=== PATIENT | male | born 1950 | race African-American/Black ===

== ENCOUNTER 2018-08-19 12:37 | Inpatient (IN) | payer OTHER ==
[~2018-08-19] VITALS: Ht 190.5 cm; Wt 97.5 kg
--- NOTE | ~2018-08-19 | HC ---
[facility] [place] [address] CONSULTATION Name: DONNA CORRAL JR Room #: 204-P ADM IN M.R.#: [id number] Admission: 08/19/18 ������������������ Attend Phys: Reyna Sumner Discharge: ������������������ Date of : 48 Report #: [id number] THIS REPORT FOR: //name// CC: FAM unknown Reyna Sumner DATE OF SERVICE: 08/27/2018 CHIEF COMPLAINT: Consultation requested from Dr. Bang for tendon from left ankle tendon debridement. HISTORY OF PRESENT ILLNESS: The patient is a 68-year-old male with a longstanding ulceration to the left anterior ankle with a necrotic and infected extensor tendon. He is on parenteral vancomycin and Zosyn with good tolerance. He has been afebrile with stable vital signs. He has type 2 diabetes mellitus with peripheral arterial disease, status post prior right BKA amputation. He also has a stage III pressure ulcer to the right scapula and flank. He has an unstageable pressure ulceration to the left heel. He denies pain to the left anterior ankle wound. The etiology of the wound is unclear, although may have risen from foot from shoes or compression type stocking. PHYSICAL EXAMINATION: GENERAL: The patient is a poor historian and history of the wound is unclear. EXTREMITIES: There is a large ulceration to the left anterior ankle that is full thickness to the subcutaneous tissue layer. There is no exposed bone or joint. A large extensor tendon present, likely the tibialis anterior. Tibialis anterior tendon is present and necrotic. The tendon is brown, friable, necrotic, and nonfunctional. The patient is nonambulatory and cannot flex or extend his ankle to any degree. The tendon is not adhered to any granulation or subcutaneous tissue. It simply tethered and necrotic with fraying along the portion of the mid substance. The wound bed has red granulation with some pale slough. There is no undermining, no fluctuance or crepitation. The foot is warm with no pallor, cyanosis, or signs of acute vascular embarrassment. LABORATORY DATA: WBC 4.8, RBC 2.55, hemoglobin 8.2, hematocrit 24.9, and platelets 288. BUN 26, creatinine 1.0, and glucose 87. IMPRESSION: Chronic diabetic foot ulceration to left anterior ankle with necrotic and infected tibialis anterior tendon. PLAN: I excised the tibialis anterior at the proximal and distal aspect with a sterile scalpel. Subcutaneous tissue was not violated, as the tendon was bowstringing in the wound and not firmly adhered. The patient felt no pain, and there was scant bleeding with the removal, which was very simple to perform. [address] [address] CONSULTATION Name: DONNA CORRAL Room #: 204-P [facility] IN .R.#: [id number] Admission: 08/19/18 ������������������ Attend Phys: Reyna Sumner Discharge: ������������������ Date of : 48 Report #: [id number] The tendon was then sent for aerobic and anaerobic tissue cultures. The wound was cleansed and dressed with silver foam, ABDs, and Kerlix gauze. ��������������������������������������������� ���������������������������������������� By: ��������������������������������������������� [id number] Hemanth Dolan DPM /nt
[~2018-08-19 12:37] MED LIST: ACETAMINOPHEN325 M1 PO; ACIDOPHILUS LA1 EACH PER TUBE; AFLURIA 2045 MCG/0.4; ATIVAN0.5 MG PO; ATIVAN1 MG PER TUBE; AUGMENTIN 875875 MG PER TUBE; CARVEDILOL3.125 MG PO; COUMADIN 10MG T10 M1 PO; COUMADIN 3 MG TA3 MG PO; DOXYCYCLINE 10100 M1 PER TUBE; GABAPENTIN100 MG PO; GLYCOLAX POWDER17 G1 PO; JANTOVEN6 MG PO; MULTIVITAM9 MG/15 ML PER TUBE; NORVASC10 MG PO; NOVOLOG100 UNIT/1; ONDANSETRON HCL4 M3 PO; ONDANSETRON ODT4 MG PO; ONE DAILY COMP1 EAC1 PO; OXYCODONE HCL 55 MG PO; OXYCODONE HCL5 M1 PO; PNEUMOVAX25 MCG/0.5; PRAVACHOL40 MG PO; REMERON15 MG PO; SEROQUEL 100 M100 MG PER TUBE; SEROQUEL 50 MG50 M1 PO; SEROQUEL200 MG PO; VICODIN 5-5001 EACH PER TUBE; ZOFRAN ODT4 MG PO; [UNRECOGNIZED DRUG - CODE] SUBQ
[2018-08-19 12:39] VITALS: BP 119/53
[2018-08-19 14:15] LABS: ABSOLUTE NEUTROPHILS 4.2 thou/uL (1.4-8.2); BASOPHILS 0.8 % (0.0-2.0); EOSINOPHILS 1.3 % (0.0-3.0); HEMATOCRIT 28.1 % (42.0-52.0); HEMOGLOBIN 9.5 gm/dL (14.0-18.0); LYMPHOCYTES 20.4 % (24.0-44.0); MCH 32.6 pg (26.0-34.0); MCHC 33.7 g/dL (28.0-37.0); MCV 96.9 fL (80.0-100.0); MONOCYTES 4.5 % (1.0-8.0); PLATELET COUNT 411 thou/uL (150-400); RDW 15.1 % (10.5-14.5); WBC 5.7 thou/uL (4.0-11.0)
[2018-08-19 14:23] LABS: CALCIUM 8.8 mg/dL (8.5-10.1); CREATININE 1.1 mg/dL (0.7-1.3); POTASSIUM 4.3 mmol/L (3.5-5.1)
[2018-08-19 16:05] LABS: CHOLESTEROL 112 mg/dL (<200); HDL CHOLESTEROL 23 mg/dL (>40); LDL CHOLESTEROL 79 mg/dL (<100); SERUM ASSESSMENT Clear; TC:HDL 4.9 Ratio (Not establshd); TRIGLYCERIDE 50 mg/dL (<150); VLDL 10 mg/dL (<40)
[2018-08-19 16:33] LABS: TSH 1.666 uIU/mL (0.358-3.740)
[2018-08-19 17:21] VITALS: BP 132/88
--- NOTE | 2018-08-19 18:27 | NUR ---
ATTEMPTED TO CALL REPORT AGAIN AND NURSE IS UNAVAILABLE
[2018-08-19 18:39] VITALS: BP 97/70
[2018-08-19] MEDS ORDERED: ZYLOPRIM300 MG PO (21:06)
[2018-08-19] MEDS ORDERED: VITAMIN D2000 UNIT PO (21:09)
[2018-08-19 21:15] VITALS: BP 118/46
[2018-08-19] MEDS ORDERED: BAYER CHEWABLE81 MG PO (21:21)
[2018-08-19] MEDS ORDERED: ARICEPT 5 MG TAB5 MG PO (21:23)
[2018-08-19] MEDS ORDERED: PRAVACHOL20 MG PO (21:24)
[2018-08-19] MEDS ORDERED: TRAZODONE HCL50 MG PO (21:28)
[2018-08-19] MEDS ORDERED: MELATONIN3 MG PO (21:29)
[2018-08-19] MEDS ORDERED: ZESTRIL40 MG PO (21:30)
--- NOTE | 2018-08-19 21:35 | NUR ---
PT ADMISSION ASSESSMENT COMPLETED.PT IS DISORIENTED SECONDARY TO DEMENTIA. HAS TEARFUL MOMENTS. TAKES MEDS IN APPLESAUCE, PREFERABLY CRUSHED. WOUND PICTURES YET TO BE TAKEN. IVF AND IV ABTS STARTED.FALL PREC IN PLACE.
[2018-08-19] MEDS ORDERED: PEPCID20 MG PO (21:36)
--- NOTE | 2018-08-20 02:59 | NUR ---
PT HAS WOUNDS TO L HEEL AND LEFT DORSAL FOOT. PICTURES TAKEN. PT HAS SEVERAL OPEN AREAS TO BACK. SOME LOOK LIKE OPEN BLISTERS. THERE IS LOTS OF SCARS IN DIFFERENT HEALING STAGES. PICTURES TAKES.
[2018-08-20 03:35] VITALS: BP 105/64
[2018-08-20 07:27] VITALS: BP 132/93
[2018-08-20 07:28] VITALS: BP 132/93
--- NOTE | 2018-08-20 19:27 | NUR ---
ASSUMED CARE OF PATIENT AT 0715, PATIENT ALERT TO SELF WITH CONFUSION. PATIENT HAS LEFT FOREARM IV IN PLACE WITH NS AT 75CC/HR. PATIENT APPETITE NOT GOOD, PATIENT IS A FEEDER, CRUSH MEDS WITH APPLESAUCE. BLOOD SUGAR MONITORING ORDERED, NO INSULIN GIVEN THIS SHIFT. INCONTINENT OF B/B. WOUND CARE DOEN TO LEFT FOOT. PATIENT ON BEDREST. NO FAMILY HERE TODAY. WILL CONTINUE TO MONITOR.
[2018-08-20 19:29] VITALS: BP 124/49
--- NOTE | 2018-08-21 02:25 | NUR ---
ASSUMED CARE AROUND 1900. LLE DRESSING CDI. DROWSY AT BASELINE. HELD REMERON. IVF AND IV ATB. MAMADOU PUMP ORDERED. NO S/S ACUTE DISTRESS NOTED OR REPORTED AT THIS TIME. WILL CONT TO MONITOR FOR ANY CHANGES IN CONDITION.
[2018-08-21 04:45] VITALS: BP 147/65
[2018-08-21 07:30] VITALS: BP 137/43
[2018-08-21 09:30] VITALS: BP 115/56
[2018-08-21 10:35] LABS: INR 1.1; PROTIME 11.4 Seconds (9.3-11.4)
[2018-08-21 11:30] VITALS: BP 127/75
--- NOTE | 2018-08-21 13:40 | NUR ---
ADMITTED PATIEN TO UNIT FROM FOURTH FLOOR. HE IS QUITE CONFUSED BUT PLEASANT. HE DOES NOT SEEM TO BE IN PAIN. HE IS NOT ABLE TO STATE HIS NAME OR PLACE. HE IS QUITE INCOHERENT WHEN HE SPEAKS. NEEDS TOTAL CARE. WILL CONT WITH PLAN OF CARE.
[2018-08-21 16:05] VITALS: BP 139/57
[2018-08-21 20:09] VITALS: BP 149/71
[2018-08-22 04:48] VITALS: BP 132/59
--- NOTE | 2018-08-22 07:26 | NUR ---
ASSESSMENTS CHARTED. CONFUSED. IN HEART BLOCK. KOLBY IN THE 30'S DURING THE NIGHT. DR. CLEMENTE. JORGE ALBERTO WAS DC'D YESTERDAY TO SEE IF IT WAS THE CAUSE OF BRADYCARDIA. RECEIVING ANTIBIOTICS TREATMENTS. INCONTINENT OF B&B. Q2 TURNS DURING NIGHT DONE BY ACUTE CARE PHYSICIAN. NONHEALING WOUND ON LEFT ANKLE. WOUND CARE TO SEE HIM.
[2018-08-22 07:45] VITALS: BP 137/45
--- NOTE | 2018-08-22 08:35 | NUR ---
Assumed pt care at 7am.Pt in bed resting alert and oriented to self.Assessment completed.vss but heart rate was in the upper 30's to 40's and sometimes junctional on the environmental monitoring specialist but asymptomatic.Dr Taveras and Katie notifed.Coreg on hold.Eric headley np notified the family but not available.This rn was concerned about pt code status and possible pacemaker insertion.Blood sugar was 82 this am.Power Plant Operator to feed pt.Will call family again to determine code status and treatment option.Will continue to monitor.
[2018-08-22 11:55] VITALS: BP 133/62
[2018-08-22 15:50] VITALS: BP 114/83
[2018-08-22 21:18] VITALS: BP 171/54
[2018-08-23 05:31] VITALS: BP 139/60
--- NOTE | 2018-08-23 06:02 | NUR ---
ASSUME CARE 1900. PT/VITALS STABLE. PAIN NOTED WITH MOVING LEFT FOOT. CELLULITIES NOTED ON LEFT FOOT. A/O TO PERSON ONLY. NOTED TALKING TO SELF AND INCOHERENTLY. COMPLETE HEART BLOCK NOTED ON MONITOR. PT ASSYMPTOMATIC. PLAN IS TO DO ECHO AND POSSIBLE PACEMAKER WHEN INFECTION CLEARS. ASSESSMENT CHARTED. WILL CONTINUE TO MONITOR AND FOLLOW WITH POC
[2018-08-23 06:07] LABS: ALBUMIN 2.1 g/dL (3.4-5.0); CALCIUM 7.9 mg/dL (8.5-10.1); POTASSIUM 4.5 mmol/L (3.5-5.1); TOTAL BILIRUBIN 0.2 mg/dL (<0.1-1.0); TOTAL PROTEIN 5.9 g/dL (6.4-8.2)
[2018-08-23 06:30] LABS: HEMATOCRIT 26.8 % (42.0-52.0); HEMOGLOBIN 8.9 gm/dL (14.0-18.0); MCH 32.5 pg (26.0-34.0); MCHC 33.3 g/dL (28.0-37.0); MCV 97.4 fL (80.0-100.0); RBC 2.75 mil/uL (4.50-6.00); RDW 15.1 % (10.5-14.5); WBC 4.8 thou/uL (4.0-11.0)
[2018-08-23 07:45] VITALS: BP 126/46
[2018-08-23 11:30] VITALS: BP 132/47
--- NOTE | 2018-08-23 13:30 | EKG ---
[address] [place] [address] ELECTROCARDIOGRAM REPORT Name: DONNA CORRAL Room #: 204-P ADM IN M.R.#: [id number] ������������������ Admission: 08/19/18 ������������������ Attend Phys: Reyna Sumner Discharge: ������������������ Date of : 48 Report #: [id number] ����������������������������������������������������������������� [id number] THIS REPORT FOR: //name// [facility] Test Date: 2018-08-21 Test Time: 08:11:00 Pat Name: DONNA CORRAL Department: Room: 204 Gender: M Mortgage Operations Manager: JENNIFER : 1950 Requested By: William Gonzalez Order Number: [id number] MD: Derw Sweeney Measurements Intervals [place] Rate: 41 P: RI: QRS: -87 QRSD: 139 T: 80 QT: 539 QTc: 446 Interpretive Statements Junctional rhythm Right bundle branch block Left anterior fascicular block Compared to ECG 03/12/2011 14:13:04 Junctional rhythm now present Electronically Signed On 08-23-2018 13:29:53 CDT by Drew Sweeney [email or web address] ��������������������������������������������� <ELECTRONICALLY SIGNED> ���������������������������������������� By: Drew Sweeney MD, [facility] ��������������������������������������������� 08/23/18 1329 0811 0 Drew Sweeney MD, [facility] /EPI
--- NOTE | 2018-08-23 13:42 | EKG ---
[place] [address] [facility] [place] [address] ELECTROCARDIOGRAM REPORT Name: DONNA CORRAL JR Room #: 204-P ADM IN M.R.#: [id number] ������������������ Admission: 08/19/18 ������������������ Attend Phys: Reyna Sumner Discharge: ������������������ Date of : 46 Report #: [id number] ����������������������������������������������������������������� [id number] THIS REPORT FOR: //name// [facility] Test Date: 2018-08-22 Test Time: 08:24:33 Pat Name: DONNA CORRAL Department: Room: 204 P Gender: M Manager Of Clinical: ALECIA : 1950 Requested By: Tammie Sands Order Number: [id number] MD: Drew Sweeney Measurements Intervals [place] Rate: 40 P: [place]: QRS: -76 QRSD: 130 T: 33 QT: 544 QTc: 444 Interpretive Statements Sinus bradycardia with first-degree AV block IVCD, consider atypical RBBB Consider anterior infarct Compared to ECG 03/12/2011 14:13:04 Sinus bradycardia has replaced possible junctional bradycardia Electronically Signed On 08-23-2018 13:42:41 CDT by Drew Sweeney [email or web address] ��������������������������������������������� <ELECTRONICALLY SIGNED> ���������������������������������������� By: Drew Sweeney MD, [facility] ��������������������������������������������� 08/23/18 1342 0824 0824 Drew Sweeney MD, [facility] /EPI
--- NOTE | 2018-08-23 16:04 | NUR ---
AAOX1. SPEECH INCOHERENT AND MUMBLY. INCONTINENT OF LARGE AMOUTS OF URINE. IV D/C'D FROM RIGHT ARM DUE TO INFILTATION. ATE APPROX 50% OF MEALS - DOES NOT FEED SELF. TURNED EVERY 2 HOURS. BACK WITH SMALL WOUNDS COVERED WITH MEPILEX. BARRIER CREAM APPLIED TO BUTTOCKS. REMAINS ON ROOM AIR. LEFT FOOT WOUNDS REDRESSED WITH IODOFORM GAUZEA AND COVERED WITH ABD AND HELD INPLACE WITH ROLLER GAUZE. DENIES PAIN. HEART RHYTHM REMAINS KOLBY IN COMPLETE BLOCK.
[2018-08-23 16:05] VITALS: BP 136/59
[2018-08-23 20:15] VITALS: BP 121/51
[2018-08-24 03:23] LABS: HEMATOCRIT 25.9 % (42.0-52.0); HEMOGLOBIN 8.5 gm/dL (14.0-18.0); MCH 32.2 pg (26.0-34.0); MCHC 32.9 g/dL (28.0-37.0); RBC 2.65 mil/uL (4.50-6.00); RDW 15.3 % (10.5-14.5); WBC 4.4 thou/uL (4.0-11.0)
[2018-08-24 03:44] LABS: % SATURATION 30 % (20-39); IRON 30 ug/dL (65-175); TIBC 99 ug/dL (250-450)
[2018-08-24 04:15] VITALS: BP 145/110
--- NOTE | 2018-08-24 05:56 | NUR ---
ASSUME CARE 190. PT/VITALS STABLE. A/O TO PERSON ONLY. HX OF DEMENTIA. PT STILL SPEAKING TO SELF BUT MORE APPROPRIATE WITH RESPONSE TO QUESTIONS COMPARED TO PREVIOUS DAYS. PT SEEMS TO BE COMING AROUND MORE. POOR ACTIVITY TOLERANCE. WILL BENEFIT FROM PT/OT EVAL/TX. PT HAS MULTILPLE WOUND ON BACK AT MULTIPLE STAGES OF HEALING, BUT CANNOT COMMUNICATE WHAT EXACTLY HAPPENED TO HIM AND WHY HE HAS ALL THESE WOUNDS AT DIFFERENT HEALING STAGES. ASSESSMENT CHARTED. PROGRESSING WITH POC. PLAN IS TO CONTINUE TO TREAT WITH ABX AND MAKE A DECISION ON LEFT FOOT. LABS ARE APPROPRIATE. ADEQUATE REST NOTED. COMPLETE HEART BLOCK NOTED ON MONITOR WITH HR IN 30s-50s. PT ASSYMPTOMATIC. WILL CONTINUE TO MONITOR AND FOLLOW WIHT POC
[2018-08-24 08:43] VITALS: BP 137/62
[2018-08-24 12:08] VITALS: BP 140/50
--- NOTE | 2018-08-24 15:15 | NUR ---
WOUND CONSULT; ROUNDING WITH DR LI BOLAND AND CRISTIAN PORTER USED CAR LOT. 3 WOUNDS TO THE LEFT FOOT PRESSURE IS LIKELY ETIOLOGY. THE DORSAL SURFACE OF THE LEFT FOOT HAS TENDON EXPOSED. THE LEFT HEEL AND LEFT FOORT WOUNDS ARE UNSTAGEABLE. THIS FOOT SEEMS TO BE INSENSATE. RECOMMENDATIONS; XEROFORM ABD,KERLIX DAILY/PRN DISCUSSED WITH SUSANNE
[2018-08-24 17:15] VITALS: BP 149/99
--- NOTE | 2018-08-24 18:40 | NUR ---
US OF BLE DONE, WOUND RE-WRAPPED, PT'S SPOUSE CAME UP TO VISIT AND HELPED FEED HIM FOR DINNER. STATES BACK WOUNDS, IN VARYING DEGREES OF HEALING/SCARRING, ARE OLD BED SORES
[2018-08-24 20:05] VITALS: BP 129/43
[2018-08-25 04:57] VITALS: BP 147/60
--- NOTE | 2018-08-25 06:12 | NUR ---
[facility] 1900. PT/VITALS STABLE. POORLY COMMUNICATES NEEDS BUT MUCH IMPROVEMENT NOTED FROM HOW PT RESPONDS TO COMMANDS. PT IS PROVIDES MORE APPROPRIATE ANSWERS TO QUESTIONS THAN BEFORE. ADEQUATE REST NOTED THROUGH THE NIGHT. NEEDS ENCOURGAING WITH FOOD and water intake. ASSESSMETN AAS CHARTED. PROGRESSING WITH POC. PLAN IS TO CONTINUE TREATING PT WITH ABX TO CLEAR INFECTION AND THEN POSSIBLE TALKS WITH CARDIO ON PACEMAKER PLACEMENT. ALSO POSSIBLE TALKS ON POC FOR THE REMAINING FOOT. WILL CONTINUE TO FOLLOW WITH POC
[2018-08-25 07:00] VITALS: BP 157/55
--- NOTE | 2018-08-25 08:14 | NUR ---
Patient with some confusion. Sp with dtr and patient resides at home with family. All needs on one level. Dtr reports patient has hospital bed, sukhi lift, a paid aide to assist with housekeeping. Patient has visiting phys. Dtr reports they do not have HH care. Dtr reports interest in therapy for patient at home. Agreeable to HH care at home. If patient to dc today will discuss HH with .
--- NOTE | 2018-08-25 08:47 | HC ---
[facility] [place] [address] CONSULTATION Name: ELLISDONNAPATTI Lee JR Room #: 204-P [facility] IN M.R.#: [id number] Admission: 08/19/18 ������������������ Attend Phys: Reyna Sumner Discharge: ������������������ Date of : 48 Report #: [id number] THIS REPORT FOR: //name// CC: FAM unknown Reyna Sumner DATE OF SERVICE: 08/24/2018 CHIEF COMPLAINT: Ulcerations to the back and left lower extremity. HISTORY OF PRESENT ILLNESS: This is a 68-year-old male patient with a history of type 2 diabetes mellitus and prior right below knee amputation, was admitted through the Emergency Department due to persistent or worsening wounds of the lower extremity. He is unable to provide any information about himself and is a little bit combative. Per the medical records, he has been followed at [facility]. Details of those visits are unavailable at this time. According to the records, below knee amputation was recommended on the left side and reportedly family has refused. The patient is not able to have a rational conversation about his care presently. PAST MEDICAL HISTORY: Obtained from his records include diabetes mellitus, prior right below knee amputation, hypertension, lymphedema, and anemia. ALLERGIES: SULFA. MEDICATIONS: Include ondansetron, Norvasc, Coreg, gabapentin, Ativan, Remeron, Pravachol, GlycoLax powder, Seroquel, NovoLog, Ativan, OxyIR, and Coumadin. SOCIAL HISTORY: The patient has a history of alcohol use. No history of smoking. REVIEW OF SYSTEMS: Really not able to be obtained. The patient does converse, but does not really answer questions pertaining to his current condition on health care. PHYSICAL EXAMINATION: VITAL SIGNS: At this time include temperature 36.7, pulse 40, respiratory rate of 18, and blood pressure 140/50. GENERAL APPEARANCE: This is a chronically ill-appearing male patient who appears to be in no distress. HEENT: Head normocephalic. Nose and throat clear. NECK: Supple. LUNGS: Clear. ABDOMEN: Soft, bowel sounds present. EXTREMITIES: Lower extremities demonstrates a previously healed right below-knee amputation site. Examination of the left lower extremity [facility] [address] [place] [address] CONSULTATION Name: DONNA CORRAL Room #: 204-P [facility] IN ..#: [id number] Admission: 08/19/18 ������������������ Attend Phys: Reyna Sumner Discharge: ������������������ Date of : 48 Report #: [id number] demonstrates ulceration to the posterior left heel. It is covered with a black eschar, is slightly loose. There is no obvious odor. Small amount of drainage is noted. Anteriorly, the patient has exposed flexor tendon appearing to be tibialis anterior tendon, it is desiccated and fairly widely exposed, surrounding that there is some granulation tissue. I am not able to palpate distal pulses. The patient also noted to have stage III pressure ulcerations to his right scapular and right flank area. These are relatively small clean, healthy, granulating with no exposure of deep structures. LABORATORY DATA: Includes white blood cell count 4.4, the hemoglobin 8.5, hematocrit 25.9, and platelet count 308,000. Sodium 145, potassium 4.5, chloride 110, CO2 25, BUN 12, creatinine 1.0, glucose 81, total bilirubin 0.2, AST is 18, ALT is 16, total protein 5.9, and albumin 2.1. CLINICAL IMPRESSION: 1. Stage III pressure ulceration of the right scapular region and stage II pressure ulceration to the right flank region. 2. Unstageable pressure ulcer to the left heel. 3. Stage IV pressure ulceration of the left anterior ankle. I suspect that this is pressure where there is certainly a component of diabetes and probable vascular disease have contributed to this. In this location, I suspect at some point, he was wearing a stocking or some footwear that was tight across the anterior ankle causing an erosion. 4. Diabetes mellitus. 5. Severe protein-calorie malnutrition. RECOMMENDATIONS: At this point in time, I doubt the left leg can be salvaged. He would likely best be served with amputation. We will check arterial studies. There is no family available to discuss care options at this time. The patient does not appear to be able to converse coherently regarding recommendations. We will recommend topical Xeroform gauze for now until the anterior ankle protective dressing on the heel. He will need a PRAFO boot on the left heel. He will need a low air loss mattress, q.2 hour turning and repositioning, aggressive nutritional support, bordered foam to the scapular and flank ulcerations. I appreciate being asked to see him in consultation. ��������������������������������������������� <ELECTRONICALLY SIGNED> ���������������������������������������� By: Shon Bang MD ��������������������������������������������� 08/25/18 0847 1528 2253 Shno Bang MD /nt
[2018-08-25 10:49] VITALS: BP 157/55
[2018-08-25 12:00] VITALS: BP 112/45
--- NOTE | 2018-08-25 15:55 | 2DMMODE ---
[facility] [place] [address] 2 D/M-MODE ECHOCARDIOGRAM Name: DONNA CORRAL JR Room #: 204-P [facility] IN .R.#: [id number] ������������� Admission: 08/19/18 ������������� Attend Phys: Reyna Mujica Discharge: ��� ������������� ��� Date of : 46 Date of Service: 08/21/18 1438 �� Report #: [id number] �������� �������������������������������������������� THIS REPORT FOR: //name// Accession No. : [id number] Patient Name / ID : ELLIS Lee JR / [id number] Exam Date : 08/21/2018 13:47:14 ( Approved ) Study Comment : Sex / Age : M / 68Y Creator : Joe Vegas Dictator : Peer Specialist : Water Softener Servicer : Wero Gutierrez MD Approver2 : Report Date : 08/21/2018 14:38:34 My Comment : APPROVED REPORT Study performed: 08/21/2018 13:47:14 EXAM: Comprehensive 2D, Doppler, and color-flow Echocardiogram Patient Location: Bedside Room #: 204 Status: routine BSA: 2.15 HR: 52 bpm BP: 127/75 mmHg Rhythm: Bradycardia Other Information Study Quality: Adequate Indications Arrhythmia Diabetes Hypertension/HDD Volumes Left Atrial Volume (Systole) Single Plane 4CH: 74.16 mL Single Plane 2CH: 47.34 mL LA ESV Index: 31.00 mL/m2 Aortic Valve AoV Peak Maninder.: 1.29 m/s [facility] [place] [address] 2 D/M-MODE ECHOCARDIOGRAM Name: DONNA CORRAL Room #: 204-P [facility] IN M.R.#: [id number] ������������� Admission: 08/19/18 ������������� Attend Phys: Reyna Mujica Discharge: ��� ������������� ��� Date of : 46 Date of Service: 08/21/18 1438 �� Report #: [id number] �������� �������������������������������������������� AO Peak Gr.: 6.68 mmHg LVOT Max P.56 mmHg LVOT Max V: 0.94 m/s Mitral Valve E/A Ratio: 2.0 MV Decel. Time: 175.45 ms MV E Max Maninder.: 1.31 m/s MV A Maninder.: 0.64 m/s MV PHT: 50.88 ms IVRT: 69.20 ms Pulmonary Valve PV Peak Maninder.: 1.22 m/s PV Peak Gr.: 5.99 mmHg Tricuspid Valve TR Peak Maninder.: 2.29 m/s TR Peak Gr.: 20.94 mmHg PA Pressure: 21.00 mmHg Left Ventricle The left ventricle is normal size. There is normal LV segmental wall motion. There is normal left ventricular wall thickness. The left ventricular systolic function is normal. The left ventricular ejection fraction is within the normal range. LVEF is 55-60%. This study is not technically sufficient to allow evaluation of the LV diastolic function. Right Ventricle The right ventricle is normal size. The right ventricular systolic function is normal. Atria The left atrium size is normal. The right atrium size is normal. Aortic Valve The aortic valve is normal in structure. No aortic regurgitation is present. There is no aortic valvular stenosis. Mitral Valve The mitral valve is normal in structure. Trace mitral regurgitation. No evidence of mitral valve stenosis. Tricuspid Valve The tricuspid valve is normal in structure. There is trace tricuspid regurgitation. Estimated PAP 21 plus the right atrial pressure. There is no pulmonary hypertension. [facility] [address] [place] [address] 2 D/M-MODE ECHOCARDIOGRAM Name: DONNA CORRAL Room #: 204-P [facility] IN [facility]#: [id number] ������������� Admission: 08/19/18 ������������� Attend Phys: Reyna Mujica Discharge: ��� ������������� ��� Date of : 46 Date of Service: 08/21/18 1438 �� Report #: [id number] �������� �������������������������������������������� Pulmonic Valve The pulmonary valve is normal in structure. There is no pulmonic valvular regurgitation. Great Vessels The aortic root is normal in size. IVC is not well visualized. Pericardium There is no pericardial effusion. <Conclusion> The left ventricle is normal size. LVEF is 55-60%. The aortic valve is normal in structure. The mitral valve is normal in structure. Trace mitral regurgitation. The tricuspid valve is normal in structure. There is trace tricuspid regurgitation. Estimated PAP 21 plus the right atrial pressure. There is no pulmonary hypertension. The pulmonary valve is normal in structure. The aortic root is normal in size. There is no pericardial effusion. ��������������������������������������������� ���������������������������������������� By: ��������������������������������������������� 1438 1552 Wero Gutierrez MD /HILARIA
[2018-08-25 16:00] VITALS: BP 122/72
--- NOTE | 2018-08-25 16:18 | NUR ---
Dr Burgos speaking with family regarding option. does not want amputation. Updated RN. Plan home with HH once stable.
--- NOTE | 2018-08-25 17:51 | NUR ---
ASSUMED CARE OF PT AT SHIFT CHANGE. ASSESSMENTS CHARTED. MEDS GIVEN PER APR. PT ALERT AND ORIENTED TO PERSON ONLY, PT CONFUSED. VSS, DENIES PAIN, O2 SATS WNL ON ROOM AIR, NO S/SX OF CARD OR RESP DISTRESS NOTED. PT NON AMBULATORY, Q2 TURNS ENFORCED. APPETITE ADEQUATE- ASSISTED AND ENCOURAGED TO EAT MEALS. WOUND CARE PERFOMED PER WOUND CARE ORDERS. PT DENIES CONCERNS AT THIS TIME. PT FAMILY REQUESTED TO SPEAK WITH WOUND PHYSICIAN, PHSICIAN NOTIFIED AND TELEPHONE NUMBER OF FAMILY GIVEN TO PHYSICAN. PT DENIES NEEDS AT THIS TIME. WILL CONT TO MONITOR AND FOLLOW POC.
[2018-08-25 20:12] VITALS: BP 133/104
[2018-08-26] VITALS (8 sets, daily range): BP systolic 133–145; BP diastolic 32–76
--- NOTE | 2018-08-26 03:58 | NUR ---
PT REMAINS ON RA. COMPLETE HEART BLOCK ON MONITOR. PT TOLERATING FREQUENT TURNS. OCCULT STOOL SAMPLE OBTAINED THIS SHIFT.
--- NOTE | 2018-08-26 12:47 | NUR ---
patient on service with [facility] home [facility] care rec only nursing.
--- NOTE | 2018-08-26 15:04 | NUR ---
michelle sent updates to [facility]
--- NOTE | 2018-08-26 18:27 | NUR ---
ASSUMED CARE OF PT AT SHIFT CHANGE. ASSESSMENTS CHARTED. MEDS GIVEN PER APR. PT DROWSY THIS SHIFT, ALERT AT TIMES, ORIENTED TO SELF ONLY, CONFUSED. BP LOW THROUGHOUT SHIFT, AT APPROX 1700 PT BP LOW, PHYSICIAN NOTIFIED, ORDERS RECEIVED. BP INCREASED, PT BECAME MORE AWAKE WELL. SPOUSE AT BEDSIDE AND HELPED PT EAT DINNER, APPETITE VERY WELL THIS SHIFT. PT INCONT OF BOWEL AND BLADDER, WOUND DRESSING CHANGED PER WOUND ORDERS, PICTURES TAKEN. WOUND DR CONSULTED MATERIAL YARD CLERK THIS SHIFT. PT DENIES CONCERNS AT THIS TIME. CONTINUING TO MONITOR.
--- NOTE | 2018-08-27 00:50 | NUR ---
ASSUMED CARE OF PATIENT AT 1900. VSS, AFEBRILE TURNED Q2. INCONTINENT OF URINE AND BOWEL. ALERT ONLY TO SELF, BELIEVES IT IS 1996 AND HE IS 25. ORIENTED FREQUENTLY. TAKES MEDS WITH APPLESAUCE, NO DIFFICULTY. NO S/S OF DISTRESS, HEART RATE REMAINS EXTREMELY KLOBY. WORKING TOWARDS POC GOALS.
[2018-08-27 03:22] VITALS: BP 140/51
[2018-08-27 04:15] LABS: CALCIUM 8.5 mg/dL (8.5-10.1); POTASSIUM 4.3 mmol/L (3.5-5.1)
[2018-08-27 04:35] LABS: HEMATOCRIT 24.9 % (42.0-52.0); HEMOGLOBIN 8.2 gm/dL (14.0-18.0); MCH 32.2 pg (26.0-34.0); MCV 97.5 fL (80.0-100.0); RBC 2.55 mil/uL (4.50-6.00); RDW 15.9 % (10.5-14.5); WBC 4.8 thou/uL (4.0-11.0)
[2018-08-27 07:05] VITALS: BP 149/44
[2018-08-27 11:27] VITALS: BP 150/88
[2018-08-27 15:09] VITALS: BP 159/40
--- NOTE | 2018-08-27 17:34 | NUR ---
ASSUMED CARE OF PT AT SHIFT CHANGE. ASSESSMENTS CHARTED. MEDS GIVEN PER APR. PT ORIENTED TO SELF ONLY, CONFUSED. VSS, DENIES PAIN. O2 SATS WNL ON ROOM AIR. PT INCONTINENT OF BOWEL AND BLADDER. Q2 TURNS ENFORCED. WOUND CARE PHYSICIAN CONSULTED PODIATRY FOR TENDON SACRAFIC YESTERDAY AND SPOKE WITH FAMILY REGARDING TENDON SACRAFIC. CRIME INVESTIGATOR SPECIAL AGENT VISITED WITH PT TODAY, PROCEDURE FOR TENDON REMOVAL TODAY, CONSENT SIGNED BY PHYSICIAN. FOOT CURRENTLY WRAPPED IN ORIGINAL DRESSING BY CRIME INVESTIGATOR SPECIAL AGENT. PT CURRENTLY BEING FED DINNER, APPETITE ADEQUATE THROUGHOUT DAY. DENIES CONCERNS AT THIS TIME. WILL CONT TO MONITOR.
[2018-08-27 19:58] VITALS: BP 152/41
--- NOTE | 2018-08-28 04:54 | NUR ---
ASSUMED CARE AT 1900. PT ALERT AND ORIENTED. NO DISTRESS. PT DENIES PAIN. CONFUSED. WOUND DRESSINGS INTACT. VITALS STABLE. WILL CONTINUE WITH ABX AND FOLLOW POC.
[2018-08-28 06:07] VITALS: BP 153/60
[2018-08-28 08:05] VITALS: BP 148/110
[2018-08-28 11:28] VITALS: BP 127/39
--- NOTE | 2018-08-28 14:18 | NUR ---
Licensing Manager visited with the pt and his spouse Tammy at bedside. DC plan at this time is to return home with hh;however should the pt need iv atb at dc they would be interested in a SNF stay vs home infusion. The pt has been to [facility] in the past and would consider that again. Will check on bed status and physician imput regarding plan for the IV ATBs.
--- NOTE | 2018-08-28 16:39 | NUR ---
FAXED REFERRAL FOR [facility] SPOKE WITH MAURILIO JACKSON AND SHE WILL REVIEW. DCP TO FOLLOW.
[2018-08-28 16:42] VITALS: BP 144/89
[2018-08-28 16:43] VITALS: BP 144/89
--- NOTE | 2018-08-28 18:48 | NUR ---
PT CARE ASSUMED APPROX 0700. PT ALERT BUT DISORIENTED X3. ORIENTED ONLY TO SELF. THIS IS BASELINE. DENIES PAIN. NO APPARENT DISTRESS NOTED. VSS. BS WNL. TURNING Q2 HRS AND PRN. INCONT OF BOWEL AND BLADDER. AT BEDSIDE. PT COMBATIVE AT TIMES. HELPS PT TO BECOME MORE COOPERATIVE. EDUCATED ON POLICY FOR RESTRAINTS IF PT REMAINS COMBATIVE DISPLAYING POTENTIAL HARM TO SELF OR OTHER. RESTRAINTS NOT NECESSARY AT THIS TIME. IVF AND IV ABT REMAINS TO POC. PT TOLERATING. NO DISTRESS NOTED.
[2018-08-28 19:54] VITALS: BP 134/36
--- NOTE | 2018-08-29 04:36 | NUR ---
1900. PT CONFUSED AND COMBATIVE WITH CARE. DENIES PAIN. NO SIGNS OF DISTRESS OVERNIGHT. VITALS STABLE BUT PULESE REMAIN KOLBY WITH A HEART BLOCK ON THE BOOK CLEANER. INCONTINENT OF BOWEL AND BLADDER. NO FURTHER CONCERNS. WILL CONTINUE TO FOLLOW POC.
[2018-08-29 05:13] VITALS: BP 146/95
[2018-08-29 07:16] LABS: HEMATOCRIT 24.7 % (42.0-52.0); HEMOGLOBIN 8.2 gm/dL (14.0-18.0); MCV 96.9 fL (80.0-100.0); RBC 2.55 mil/uL (4.50-6.00); RDW 16.1 % (10.5-14.5); WBC 5.3 thou/uL (4.0-11.0)
[2018-08-29 07:27] LABS: CALCIUM 7.9 mg/dL (8.5-10.1); CREATININE 0.9 mg/dL (0.7-1.3); POTASSIUM 3.9 mmol/L (3.5-5.1)
[2018-08-29 08:03] VITALS: BP 131/39
[2018-08-29 11:30] VITALS: BP 123/41
[2018-08-29 15:45] VITALS: BP 133/34
--- NOTE | 2018-08-29 17:33 | NUR ---
PATIENT CARE ASSUMED, ASSESSMENT CHARTED, PATIENT CONFUSED AND ORIENTED TO SELF, VSS, Q 2 HR TURNS, DRESSING CHANGED ON LEFT FOOT AND RIGHT UPPER BACK. NS INFUSING AT 1OOML. WILL CONTINUE TO MONITOR
[2018-08-29 20:18] VITALS: BP 151/60
--- NOTE | 2018-08-30 02:14 | NUR ---
PT REMAIN ALERT TO SELF. DENIES PAIN. CONFUSED. VITAL STABLE. REMAINS SB IN 40S AND 30S BUT ASYMPTOMATIC. COMBATIVE SOMEWHAT WITH CARE THIS NIGHT. Q2 TURNS, AIR LOSS MATTRESS FUNCTIONAL. LEG BOOT TO THE LEFT FOOT. ASSESSMENTS DOCUMENTED. WILL CONTINUE TO FOLLOW POC
[2018-08-30 04:05] VITALS: BP 152/83
--- NOTE | 2018-08-30 04:52 | HC ---
[facility] [place] [address] CONSULTATION Name: DONNA CORRAL JR Room #: 204-P ADM IN M.R.#: [id number] Admission: 08/19/18 ������������������ Attend Phys: Reyna Sumner Discharge: ������������������ Date of : 46 Report #: [id number] THIS REPORT FOR: //name// CC: FAM unknown Reyna Sumner DATE OF SERVICE: 08/29/2018 INFECTIOUS DISEASE CONSULTATION ATTENDING PHYSICIAN: Dr. Sumner. REASON FOR EVALUATION: Recommendations for antibiotic therapy, the patient with a deep infection. HISTORY OF PRESENT ILLNESS: The patient is a 68-year-old gentleman with diabetes mellitus complicated by some vasculopathy, also has fairly advanced dementia, apparently has an ongoing issue with multi focal ulcerations including the posterior aspect of his left heel and developed some drainage, increasing inflammation. Underwent imaging showed no evidence of periosteal reaction, erosive changes. Arterial Doppler showed widespread atherosclerosis, suspect popliteal artery [id number] stenosis. Did undergo debridement of the left ankle tendon with partial resection. Operative culture result is pending. Gram stain did show mixed type picture including gram-positive cocci, gram-positive rods, and empirically started on vancomycin as well as piperacillin and tazobactam. Additional history was not reliably obtained. His family members is not overtly distressed. It is not clear if he has had any fevers or systemic illness. ALLERGIES: Listed to SULFA. CURRENT MEDICATIONS: Include vancomycin, atorvastatin, quetiapine, mirtazapine, Zosyn, p.r.n. analgesics, antiemetics, and zolpidem. PAST MEDICAL HISTORY: Includes diabetes mellitus type 2 complicated by vasculopathy, remote multisite ulcers, history of previous below-knee amputation on the right, lymphedema, chronic anemia, hypertension, and depression. SOCIAL HISTORY: Nonsmoker, no ethanol, no illicit drug use. FAMILY HISTORY: Noncontributory. REVIEW OF SYSTEMS: Not reliably obtained. PHYSICAL EXAMINATION: GENERAL: He is pleasant, alert, and cooperative. He is clearly moderately to [facility] [employer] [place] [address] CONSULTATION Name: DONNA CORRAL Room #: [address] [place] [address] IN ..#: [id number] Admission: 08/19/18 ������������������ Attend Phys: Reyna Sumner Discharge: ������������������ Date of : 46 Report #: [id number] markedly encephalopathic consistent with diagnosis of progressive dementia, appears to be mildly undernourished. He is not overtly distressed. VITAL SIGNS: Temperature 98.3, pulse 40, respirations 18, blood pressure 133/34, and saturation 100%. SKIN: Warm, dry, no rashes. HEENT: Normocephalic. Extraocular muscles intact. NECK: Supple. LUNGS: Diminished breath sounds and had crackles. HEART: Regular, occasional ectopy. I do not appreciate a murmur. ABDOMEN: Soft, nontender, nondistended. EXTREMITIES: No cyanosis is appreciated as operative dressing in place distal left lower extremity, well-healed right below knee amputation site. GENITOURINARY: Deferred. RECTAL: Deferred. LABORATORY DATA: Operative culture pending. Electrolytes: Sodium 145, potassium 3.9, chloride 113, bicarbonate 25, anion gap of 7, BUN and creatinine 35 and 0.7, Estimated GFR 101. CBC: White count 5.3, H and H 8.2 and 24.7, and platelets of 255. ASSESSMENT AND PLAN: Deep left posterior heel ulceration, status post tendon resection for suspected deep infection. Gram stain certainly raises possibility of a polymicrobial etiology. We will continue current therapy, ideally pare down the wound care as prescribed. Encouraged family as well oral food intake, increase offload the site. Symptomatic treatment at this point and appear to be in significant pain, which is hopeful. ��������������������������������������������� <ELECTRONICALLY SIGNED> ���������������������������������������� By: Tariq Guajardo MD ��������������������������������������������� 08/30/18 [id number] Tariq Guajardo MD /nt
--- NOTE | 2018-08-30 08:38 | NUR ---
PT ORIENTED TO SELF, REMAIN BRADYCARDIC ON TELE HOWEVER FAMILY HAS REFUSED PACEMAKER PER CARDIOLOGY. WILL CONTINUE WITH WUND CARE AND Q 2 HOUR TURNS.
[2018-08-30 08:45] LABS: HEMATOCRIT 25.7 % (42.0-52.0); HEMOGLOBIN 8.4 gm/dL (14.0-18.0); MCH 32.1 pg (26.0-34.0); MCHC 32.8 g/dL (28.0-37.0); MCV 97.7 fL (80.0-100.0); RBC 2.63 mil/uL (4.50-6.00); RDW 16.1 % (10.5-14.5); WBC 4.8 thou/uL (4.0-11.0)
[2018-08-30 08:47] VITALS: BP 150/43
[2018-08-30 08:54] LABS: CALCIUM 8.5 mg/dL (8.5-10.1); POTASSIUM 3.6 mmol/L (3.5-5.1)
[2018-08-30 10:41] VITALS: BP 126/50
[2018-08-30 16:58] VITALS: BP 154/60
[2018-08-30 20:06] VITALS: BP 152/51
--- NOTE | 2018-08-31 04:54 | NUR ---
RECEIVED PT'S CARE AT 1940; PT. ON BED SLEEPING; ALERT TO NAME; DURING ASSESSMENT NO APPARENT PAIN; HS MEDICATION GIVEN WITH YOGURT; TURN FROM SIDE TO SIDE Q2H; ABLE TO REST WITH EYES CLOSE DURING THE NIGHT; ASSESSMENT CHARGED; FOLLOWING POC; MONITORING; WILL PASS ON REPORT.
[2018-08-31 05:00] LABS: CALCIUM 7.8 mg/dL (8.5-10.1); POTASSIUM 3.9 mmol/L (3.5-5.1)
[2018-08-31 05:38] VITALS: BP 155/57
[2018-08-31 07:33] VITALS: BP 157/53
--- NOTE | 2018-08-31 07:47 | NUR ---
PATIENT CARE ASSUMED, ASSESSMENT CHARTED, ALERT AND ORIENTED TO SELF, SB 1ST AV BLOCK, BBB ON MONITOR, INCONTINENT OF BOWEL AND BLADDER, NO C/O PAIN, WILL CONTINUE TO MONITOR.
[2018-08-31 11:28] VITALS: BP 96/70
--- NOTE | 2018-08-31 16:04 | NUR ---
referral process for post acute care to [facility]. Sanjuana mclain completed onsite eval and reports they are unable to accept patient. Report cannot meet needs. Sp with at bedside. Discussed possible LTAC referral and review. Discussed skilled post acute list. She plans to review with dtr.
[2018-08-31 16:19] VITALS: BP 151/92
[2018-08-31 20:59] VITALS: BP 155/62
[2018-09-01 00:49] VITALS: BP 153/47
--- NOTE | 2018-09-01 05:12 | NUR ---
patients cares were assumed at shift change. patient was assessed meds were passed. patient is combative and his q2 turns and meds wee crushed and placed in yogart. most activities with this man is a comfortation. will pass on in report to request a down grade. patient has refused all care from a pacemaker to be placed and the amputation of the leg with cellulitis. hourly rounding was done. the bed is in a low and locked position. the bed alarm is on.
[2018-09-01 05:47] LABS: HEMATOCRIT 24.3 % (42.0-52.0); HEMOGLOBIN 8.2 gm/dL (14.0-18.0); MCH 32.7 pg (26.0-34.0); MCHC 33.8 g/dL (28.0-37.0); MCV 96.8 fL (80.0-100.0); RBC 2.51 mil/uL (4.50-6.00); RDW 16.2 % (10.5-14.5); WBC 5.2 thou/uL (4.0-11.0)
[2018-09-01 05:55] LABS: CALCIUM 8.5 mg/dL (8.5-10.1); CREATININE 0.9 mg/dL (0.7-1.3); POTASSIUM 3.8 mmol/L (3.5-5.1)
[2018-09-01 06:11] VITALS: BP 162/62
[2018-09-01 07:25] VITALS: BP 133/62
--- NOTE | 2018-09-01 09:55 | NUR ---
ASSUMED CARE AT 0700. PT TURNED TO R SIDE FOR REPOSITIONING AND PRESSURE RELIEF. WOUND CARE DONE TO R BACK/RIB AREA DUE TO LOOSE DRESSING. WOUND CLEANED WITH SALINE AND NEW DRESSING APPLIED.
--- NOTE | 2018-09-01 09:58 | NUR ---
PT WAS TURNED AND REPOSITIONED. PT'S CECILIA PAD WAS SATURATED WITH URINE. PT WAS WIPED DOWN ON BACK AND BUTTOCKS WITH WIPES AND BARRIER CREAM APPLIED. NEW UNDER SHEETS, CECILIA PAD AND GOWN APPLIED.
--- NOTE | 2018-09-01 10:15 | NUR ---
DR RUDD REQUESTED BLADDER SCAN. SCAN AMOUNT WAS [address] RUDD ON UNIT AND NOTIFIED. DR. RUDD ORDERED STRAIGHT CATH FOR THE PT BUT PT REFUSED. DR. RUDD ON UNIT AND NOTIFIED OF PT REFUSAL. NOTED HIS REFUSAL, NO NEW ORDERS GIVEN.
--- NOTE | 2018-09-01 14:04 | NUR ---
discussed skilled/ltac discussed with dtr, interest in [facility] requested they eval. [facility] unable to accept.
--- NOTE | 2018-09-01 16:39 | NUR ---
patient accepted to [facility] bed avail in am. updated she is in agreement with plan
[2018-09-01 20:19] VITALS: BP 146/61
[2018-09-02 04:30] VITALS: BP 146/61
--- NOTE | 2018-09-02 05:28 | NUR ---
SHIFT NOTE PT ALERT AND CONFUSED. VSS. PT TURNED Q2H AND PRN. PT KEPT CLEAN AND DRY. BED BATH PERFORMED. PT HAD NO S/SX OF SOA, CHEST PAIN, NV, AND PAIN. PT SPEECH NONCONVERSATIONAL. PT WILL CONTINUE TO BE MONITORED TILL THE END OF THE SHIFT. PT REORRIENTED MULTIPLE TIMES DURING SHIFT TO ASSIST WITH CARE.
[2018-09-02 08:00] VITALS: BP 99/55
[2018-09-02] MEDS ORDERED: CEFUROXIME500 MG PO (09:05)
--- NOTE | 2018-09-02 09:46 | NUR ---
FAXED REFERRAL TO [facility] SPOKE WITH ANNA IN ADM SHE CAN ACCEPT PT AT DC. TRANSPORT ARRANGED FOR 1300 TODAY. DCP TO FOLLOW.
[2018-09-02] MEDS ORDERED: ZOSYN 3.373.375 GM/1 IV (10:56)
--- NOTE | 2018-09-02 11:48 | NUR ---
WOUND CARE FOLLOW UP; DISCHARGE IS LIKELY TODAY TO [facility]. ROUNDING WITH MONICA POWER SUPERINTENDENT AND CRISTIAN DRAWING TRACER. THE LEFT FOOT AND HEEL WOUND ASSESSMENT WAS UNCHANGED FROM YESTERDAY. THE WOUND IS STABLE. RECOMMENDATIONS;CONTINUE CURRENT POC. DISCUSSED WITH RN
--- NOTE | 2018-09-02 11:55 | NUR ---
PT DISCHARGING TODAY TO [facility] FAXED DC ORDERS/SUMMARY TO FACILITY SPOKW WITH ANNA HUERTA. SHE ARRANGED TRANSPORTATION VIA [facility] AND NO O2 FOR 1300 TODAY. DCP LEFT MSG WITH OF DC AND TIME OR TRANSPORT. UNIT NOTIFIED AND CHART COPY PER US. RN TO CALL REPORT TO [phone].
--- NOTE | 2018-09-02 12:33 | NUR ---
PT DISCHARGING TODAY BACK TO [facility] FAXED DC ORDERS/SUMMARY TO FACILITY SPOKE WITH SUKUMAR IN ADM SHE RECEIVED DC ORDERS. DCP ARRANGED TRANSPORTATION THROUGH [facility] #[id number] FOR [id number] AND DTR MAY RIDE WITH [facility]SP[facility]. UNIT NOTIFIED AND CHART COPY PER US. RN TO CALL REPORT TO [phone]. PT ALSO DISCHARGING WITH [facility] FAXED DC ORDERS DCP WILL NOTIFY THEM WHEN PT LEAVES HOSPITAL SO THEY CAN MEET UP WITH PT AND FAMILY AT FACILITY.
--- NOTE | 2018-09-02 13:59 | NUR ---
Pt's at bedside this am and both updated on dc plan to [facility] today via ambulance at 1-2pm. Both agreeable. Dc program planner faxed orders and setup [facility]. Chart copy was sent with the pt and nursing called report. Case closed.
--- NOTE | 2018-09-02 13:59 | NUR ---
ASSUME CARE @ 0700 09/02/18, PT ASSESSMENTS AND VSS COMPLETE PER MS ORDERS. PT ALERT TO SELF ONLY ( PER REPORT, THIS IS BASELINE). PT ABLE TO MOVE HIS EXTREMITIES BUT NOT TO COMMAND. PT ON RA, NO SOA NOTED. PT HAD AN UNEVENTFUL DAY, REPORT GIVEN TO JERSON @ [facility]. AMBULANCE HERE TO TRANSPORT @ 1400. PLAN OF CARE- ASSIST WITH TRANSFER.
== END 2018-09-02 13:59 | DRG 981 ==
LOC: ER 12:37 → EROBS 15:51 → 2N 15:51 → 4E 17:40 → 4W 08-20 16:35 → 2N 08-21 09:13
PROVIDERS: Hospitalist; Internal Medicine; Nurse Practitioner Family; Nurse Practitioner Gerontology; ADMIT Hospitalist
PROC: 0LBT0ZZ Excision of Left Ankle Tendon, Open Approach (ICD-10-PCS; principal; 2018-08-19)
DX: E11.621 Type 2 diabetes mellitus with foot ulcer (principal); L89.113 Pressure ulcer of right upper back, stage 3; L89.524 Pressure ulcer of left ankle, stage 4; E43 Unspecified severe protein-calorie malnutrition; L03.116 Cellulitis of left lower limb; D68.59 Other primary thrombophilia; E87.1 Hypo-osmolality and hyponatremia; I10 Essential (primary) hypertension; L89.892 Pressure ulcer of other site, stage 2; D64.9 Anemia, unspecified; Z68.26 Body mass index [BMI] 26.0-26.9, adult; Z79.899 Other long term (current) drug therapy; Z89.511 Acquired absence of right leg below knee; Z79.01 Long term (current) use of anticoagulants; Z88.2 Allergy status to sulfonamides
CPT/HCPCS: 10040; 10081; 10084; 10194; 10797